=== PATIENT | female | born 1955 | race Caucasian/White ===

== ENCOUNTER → 2024-04-21 | Outpatient (CLI) | payer BC, SELFPAY ==
[2024-04-28 12:08] LABS: HPV APTIMA, High Risk Negative (Negative)
== END | disposition home or self-care (01) ==
LOC: LABSPEC 16:07
PROVIDERS: Referring Provider Obstetrics & Gynecology; Visit Provider Obstetrics & Gynecology
DX: Z12.4 Encounter for screening for malignant neoplasm of cervix (principal)
CPT/HCPCS: 87624; 88175; G0145